=== PATIENT | male | born 1960 | race Caucasian/White ===

== ENCOUNTER 2017-11-19 07:31 | Emergency (ER) | payer SELFPAY ==
[2017-11-19 07:37] VITALS: RESP 16; O2SAT 96
--- NOTE | 2017-11-19 07:43 | EDPHY ---
HPI/HX/ROS/PE/MDM Narrative: CHIEF COMPLAINT: Back pain HPI: The patient is a 57 y/o male with a history of hyperthyroidism complaining of lower back pain, onset 10:00 PM, 10 hours ago. He was laying in bed stretching his right leg when he felt a pop in his lower back accompanied by pain. THe pain continued through out the night. He took 400 mg ibuprofen at 10: 00 PM, 440 mg of naproxen at 12:00 AM, and 650 mg of acetaminophen at 2:30 AM, without improvement in his symptoms. He reports that his symptoms improve slightly with movement and are worsened by laying still. He denies any dysuria, polyuria, or any other associated symptoms. He denies history of diabetes REVIEW OF SYSTEMS: Aside from elements discussed in the HPI, a comprehensive 10-point review of systems was reviewed and is negative. PMH: Hyperthyroidism, ACL tear, cortisone shot to L5-L6 SOCIAL HISTORY: Lives in [place], employed, dishwasher PHYSICAL EXAM: General:Patient is alert, in no acute distress. ENT:Eyes are normal to inspection. ENT inspection normal. Neck: Normal inspection. Full range of motion. Respiratory:No respiratory distress. Breath sounds normal bilaterally. Cardiovascular: Regular rate and rhythm. Strong peripheral pulses. Normal cap refill. Abdomen:The abdomen is nontender to palpation. There are no peritoneal signs. There are normal bowel sounds. Back: Normal to inspection. No tenderness to palpation. Skin: Normal color. No rash. Warm and dry. Extremities: Normal appearance. Full range of motion. Neuro: Oriented x3. Normal motor function. Normal sensory function. ED Course: Study: CT of the abdomen Indication: Back pain Results: CT scan of the abdomen was obtained. The results of the study are: 2mm kidney stone in the right ureter The study was read by the radiologist, Dr. Mayer. I viewed the images myself on the PACS system. The patient presents with sudden onset back pain, 10 hours ago. He reports that movement slightly improves his symptoms. Plan for CT to evaluate for possible kidney stone. The patient reports he is also claustrophobic. If he finds the CT too claustrophobic he will be given an antianxiety medication. 9:08 AM- CT shows a kidney stone in the right ureter. Plan for urinalysis for further evaluation. 9:50 AM- The patient does not want to wait for the results of his urinalysis to return. Results will be called to him if they differ with the kidney stone diagnosis. Plan for discharge with instructions to follow up with urology. He agrees to this course of action. MDM: This is a healthy male who presents with signs and symptoms of a kidney stone, confirmed on CT. His pain was well-controlled in the ED. He would like to be discharged home. I see no evidence of appendicitis, diverticulitis, bowel obstruction, renal failure, sepsis. - Data Points Imaging Results: Imaging Impressions Abdomen/Pelvis CT 11/19/17 07:54 Impression: 1. Distal right ureteral calculus with associated right-sided obstructive uropathy. 2. See above report for additional findings. Results called and discussed with Jayro Grace MD on 11/19/2017 at 9:07 Laboratory Results: Laboratory Results 11/19/17 08:15 11/19/17 08:15 11/19/17 11/19/17 08:15 08:15 WBC 10.25 10^3/uL H 10^3/uL (3.80-9.50) RBC 4.64 10^6/uL 10^6/uL (4.40-6.38) Hgb 15.2 g/dL g/dL (13.7-17.5) Hct 42.8 % % (40.0-51.0) MCV 92.2 fL fL (81.5-99.8) MCH 32.8 pg pg (27.9-34.1) MCHC 35.5 g/dL g/dL (32.4-36.7) RDW 12.3 % % (11.5-15.2) Plt Count 257 10^3/uL 10^3/uL (150-400) MPV 9.7 fL fL (8.7-11.7) Neut % (Auto) 79.4 % H % (39.3-74.2) Lymph % (Auto) 15.0 % % (15.0-45.0) [place] % (Auto) 5.0 % % (4.5-13.0) Eos % (Auto) 0.1 % L % (0.6-7.6) Baso % (Auto) 0.3 % % (0.3-1.7) Nucleat RBC Rel Count 0.0 % % (0.0-0.2) Absolute Neuts (auto) 8.14 10^3/uL H 10^3/uL (1.70-6.50) Absolute Lymphs (auto) 1.54 10^3/uL 10^3/uL (1.00-3.00) Absolute Monos (auto) 0.51 10^3/uL 10^3/uL (0.30-0.80) Absolute Eos (auto) 0.01 10^3/uL L 10^3/uL (0.03-0.40) Absolute Basos (auto) 0.03 10^3/uL 10^3/uL (0.02-0.10) Absolute Nucleated RBC 0.00 10^3/uL 10^3/uL (0-0.01) Immature Gran % 0.2 % % (0.0-1.1) Immature Gran # 0.02 10^3/uL 10^3/uL (0.00-0.10) Sodium 141 mEq/L mEq/L (135-145) Potassium 4.8 mEq/L mEq/L (3.5-5.2) Chloride 104 mEq/L mEq/L (97-110) Carbon Dioxide 24 mEq/l mEq/l (22-31) Anion Gap 13 mEq/L mEq/L (8-16) BUN 24 mg/dL H mg/dL (7-23) Creatinine 1.4 mg/dL H mg/dL (0.7-1.3) Estimated GFR 52 Glucose 122 mg/dL H mg/dL (70-100) Calcium 9.9 mg/dL mg/dL (8.5-10.4) Medications Given: Discontinued Medications Sodium Chloride (Ns) 1,000 mls @ 0 mls/hr IV EDNOW ONE; Wide Open PRN Reason: Protocol Stop: 11/19/17 07:53 Last Admin: 11/19/17 08:13 Dose: 1,000 mls Ketorolac Tromethamine (Toradol) 30 mg IVP EDNOW ONE Stop: 11/19/17 07:53 Last Admin: 11/19/17 08:13 Dose: 30 mg General Initial Vital Signs: Initial Vital Signs Temperature (C) 36.6 C 11/19/17 07:32 Heart Rate 60 11/19/17 07:32 Respiratory Rate 16 11/19/17 07:32 Blood Pressure 152/88 H 11/19/17 07:32 O2 Sat (%) 96 11/19/17 07:32 O2 Delivery Mode Room Air Allergies/Adverse Reactions: Penicillins Allergy (Intermediate, Verified 11/19/17 07:37) Hives Home Medications: Medication Instructions Recorded Levothyroxine [Synthroid 100 mcg 100 mcg PO DAILY06 11/19/17 (*)] Montelukast Sodium [Singulair 10 10 mg PO PRN 11/19/17 mg (*)] oxyCODONE/APAP 5/325 [Percocet 1 - 2 tab PO Q4H PRN #20 tab 11/19/17 5/325 (*)] Departure - Departure Disposition: Home, Routine, Self-Care Clinical Impression: Kidney stone on right side Condition: Good Instructions: Kidney Stones (ED) Additional Instructions: 1. Follow-up with urology within a week regarding the results of your emergency department visit. 2. Return to the emergency department for any worsening of condition. Referrals: Jazmin Dumont MD [Medical Doctor] - As per Instructions Prescriptions: oxyCODONE/APAP 5/325 [Percocet 5/325 (*)] 1 - 2 tab PO Q4H PRN #20 tab PRN Reason: Pain, Severe Report Scribed for: Jayro Grace Report Scribed by: Germaine Patino Date of Report: 11/19/17 Time of Report: 07:43 Physician Review and Approval Statement: Portions of this note were transcribed by an ED scribe. I personally performed the history, physical exam, and medical decision making; and confirm the accuracy of the information in the transcribed note.
[2017-11-19] MEDS ORDERED: KETOROLAC 30 MG/1 ML SDV IVP ONE (07:52)
[2017-11-19] MEDS ORDERED: NS 1,000 ML IV ONE (07:52)
[2017-11-19 08:28] LABS: PLATELET COUNT 257 10^3/uL (150-400)
[2017-11-19 10:02] VITALS: BP 157/95; PULSE 55; TEMP 99
== END 2017-11-19 10:02 | disposition home or self-care (01) ==
DX: N20.0 Calculus of kidney (principal); E86.9 Volume depletion, unspecified
CPT/HCPCS: 96374; J1885